=== PATIENT | female | born 1990 | race Caucasian/White ===

== ENCOUNTER 2016-05-11 14:22 | Emergency (ER) | payer OTHER ==
[2016-05-11] MEDS ORDERED: IOPAMIDOL 370 (76%) 100 ML VIAL IV ONE (14:23)
[2016-05-11 15:19] LABS: URINE BILIRUBIN NEGATIVE (NEGATIVE); URINE BLOOD TRACE (NEGATIVE); URINE GLUCOSE (UA) NEGATIVE (NEGATIVE); URINE LEUKOCYTE ESTERASE 2+ (NEGATIVE); URINE NITRITE NEGATIVE (NEGATIVE); URINE PROTEIN 1+ (NEGATIVE); URINE UROBILINOGEN NORMAL (0-1 mg/dl)
[2016-05-11] MEDS ORDERED: KETOROLAC TROMETHAMINE 30 MG/ML 1 ML VIAL ONE (15:23)
[2016-05-11] MEDS ORDERED: ONDANSETRON 4 MG/2ML 2 ML VIAL ONE (15:23)
[2016-05-11 15:25] LABS: URINE APPEARANCE SL CLOUDY; URINE COLOR DARK YELLOW
[2016-05-11 15:39] LABS: ABSOLUTE NEUTROPHIL COUNT 8.4 K/mm3 (1.8-7.7); BASO % 0.2 % (0.2-1.0); EOS % 0.3 % (0.9-2.9); HEMATOCRIT 42.7 % (37.0-47.0); HEMOGLOBIN 14.1 gm/l (12.0-16.0); IMM NEUT% 0.3 % (0-1); LYMPH # 0.8 (1.0-4.8); LYMPH % 8.1 % (15-45); MEAN CELL VOLUME 90.7 fl (81.0-99.0); MEAN CORPUSCULAR HEMOGLOBIN 29.9 pg (27.0-31.0); MEAN PLATELET VOLUME 10.2 fl (7.4-10.4); MONO # 0.4 (0.0-0.8); MONO % 3.9 % (4-12); NEUT % 87.2 % (43-75); PLATELET COUNT 355 K/mm3 (130-400); RED CELL DISTRIBUTION WIDTH 13.6 % (11.5-14.5); URINE AMORPHOUS SEDIMENT MODERATE; URINE BACTERIA 1+; URINE RBC 0-2 /hpf
[2016-05-11 16:15] LABS: ALB/GLOB RATIO 1.3 (>1.0); ALBUMIN 4.4 gm/dL (3.5-5.7); CALCIUM 9.2 mg/dL (8.6-10.3)
[2016-05-11] MEDS ORDERED: HYDROCODONE/ACETAMINOPHEN 5/325MG TABLET ONE (16:48)
--- NOTE | 2016-05-11 18:37 | CT ---
Name: CLAUDIA VALDES Exam: CT abdomen pelvis with contrast Comparison: None History: Lower abdominal pain for one day Procedure: Helical CT using multidetector technique was applied to the abdomen and pelvis during intravenous administration of 100 cc Isovue-[id number]. No oral contrast was given per ordering physician. An automated dose reduction technique was used to minimize patient radiation dose. Findings: CT abdomen (contrast enhanced): There is mild basilar atelectasis, left greater than right. Heart is not enlarged. There is no pericardial effusion. Liver, gallbladder, pancreas, adrenal glands, kidneys, aorta, IVC and portal vein are normal. The spleen is upper limits of normal in size. Stomach, small bowel and colon are normal. There are multiple small reactive lymph nodes within the retroperitoneum. In the mesentery, there are multiple lymph nodes all with short axis dimensions of 9 mm and less. Mesenteric adenitis is not excluded on this exam. There is no free air, free fluid or abscess. There is been prior left posterior lateral interpedicular screw fixation at L4-5 there is advanced asymmetric disc space narrowing to the left at L4-5. CT pelvis (contrast enhanced): The bladder is under distended. Normal size uterus is retroverted and to the right. IUD is centrally located. Ovaries are fairly symmetric in size. The right ovary is thought to contain a 2 cm hemorrhagic cyst. Small bowel, colon and appendix are normal. There are few venous vascular calcifications. There is trace free fluid in the right adnexa. There is no free air, adenopathy or abscess. Impression: 1. Suspected 2 cm hemorrhagic right ovary and cyst 2. Multiple small lymph nodes within the mesentery. Mesenteric adenitis is not excluded. 3. Normal appendix. There is no bowel obstruction. 4. Prior posterior lateral interpedicular screw fixation at L4-5 with degenerative disc disease at this level. 5. Retroverted uterus containing a centrally located IUD Note: The above report was uploaded to [facility]'s electronic medical records system at 1832 hours.
== END 2016-05-11 19:52 | disposition home or self-care (01) ==
LOC: ED 14:22
DX: R10.32 Left lower quadrant pain (principal); R10.31 Right lower quadrant pain; F17.210 Nicotine dependence, cigarettes, uncomplicated
CPT/HCPCS: 84703; 85025; 80053; 81001; 74177; 96375; 99283; 96374; 99284; J1885; J2405; Q9967; A9270